=== PATIENT | female | born 1990 | race Caucasian/White ===

== ENCOUNTER 2024-09-13 14:15 | Emergency (ER) | payer SELFPAY ==
[2024-09-13 14:15] VITALS: BP 150/107; PULSE 86; RESP 20; TEMP 36.3; O2SAT 100
--- NOTE | 2024-09-13 14:19 | ED.GENADULT ---
HPI - General Adult General Chief complaint: Unspecified Stated complaint: AMBULANCE Time Seen by Provider: 09/13/24 14:19 History of Present Illness HPI narrative: save 34-year-old female brought in by EMS and is on the scene are assessed by a physician. She was driving from [place] and apparently her car broke down and was walking and has been cold and shivering. Otherwise after speaking to her as comfortable does not want to be seen by a physician. Patient denies any suicidal or homicidal thoughts and wants to warm up and be on her way. Discharge Plan Discharge Patient Language: Hong Konger Follow-up/Referrals: UNKNOWN,DOCTOR [Primary Care Provider] -
--- NOTE | 2024-09-13 15:30 | PC.NURSE ---
[facility] ([phone]) called with pt name and address found in vehicle that [address] photo on id matched pt. pt remains in lobby, dry clothes brought in by another employee of hospital for pt. pt changing in bathroom. pt declines to verify information provided per IS Cowen Pool.
--- NOTE | 2024-09-13 16:48 | PC.NURSE ---
spoke with pt father, yoly ruffin from [place] and mother also on the phone. will send aunt vini here to hot die picker pt. explained to father pt has been calm, pt clarified name, address, birthdate. has been provided with dry clothing, shoes, food. parents concerned for pt. explained need to follow up as needed per fmd or psychiatrist but at this time pt is not a danger to herself , had declined services and has been discharged but remains in the lobby
== END 2024-09-13 14:35 | disposition left against medical advice (07) ==
LOC: CHSED 14:20
PROVIDERS: Emergency Provider Emergency Medicine
DX: Z53.21 Procedure and treatment not carried out due to patient leaving prior to being seen by health care provider (principal)
CPT/HCPCS: 99199

== ENCOUNTER 2024-09-14 17:03 | Emergency (ER) | payer SELFPAY ==
--- OUTSIDE RECORDS SUMMARY | 2024-09-14 17:05 | XMS_ITS | Clinical Summary ---
Author Organization [facility] Address [address] [place] [address] Care Team Providers Care Big Machine Consultant Name Role Phone Darrell Diaz MD Primary Care Provider [phone] Source Comments [facility],non-owned Affiliates and Associated Physician Practices is amultiple site organization consisting of ambulatory clinics and hospital sitesin [place], [place], [place] and [place]. This disclosure is being madepursuant to the Care Everywhere program and may not contain all information available regarding this patient. Last updated 18.[facility] Allergies Active Allergy Reactions Criticality Noted Date Comments Advair Diskus Other Medium 11/23/2017 Weight gain Lang Itching 05/19/2017 Prednisone Psychiatric Medium 11/23/2017 Medications * Be aware that medications may not be up to date on this document. Alwaysverify current medications with the patient. Medication Sig Dispensed Refills Start Date End Date Status albuterol HFA (PROAIR HFA) 108 (90 BASE) MCG/ACT inhalerIndications: Asthma Inhale 2 puffs by mouth every 6 hours as needed for Shortness of Breath or Wheezing Reasons: Asthma 3 Inhaler 3 11/23/2017 Active sertraline (Zoloft) 50 MG tabletIndications:G eneralized Anxiety Disorder,Major Depressive Disorder Take 1 (one) tablet by mouth once daily Reasons: Generalized Anxiety Disorder, Major Depressive Disorder 30 tablet 08/24/2022 Active Active Problems Problem Noted Date Diagnosed Date Encounter for general adult medical examination with abnormal findings 11/23/2017 Moderate episode of recurrent major depressive d isorder 11/23/2017 Mild intermittent asthma without complication Chronic allergic rhinitis 11/23/2017 Overview (01/01/2018): Continue to take Singulair which controls her symptoms of allergic rhinitis as well. Continue to take [id number] Claritin which also helps control her allergy symptoms. Overweight 11/23/2017 Resolved Problems Problem Noted Date Diagnosed Date Resolved Date Smoking 11/23/2017 01/01/2018 Immunizations Name Administration Dates Next Due PNEUMOCOCCAL PPSV23 11/23/2017 Family History Medical History Relation Name Comments Asthma Father Hypertension Father Asthma Mother DVT - Deep Vein Thrombosis Mother Relation Name Status Comments Father Alive Mother Alive Social History Tobacco Use Types Packs/Day Years Used Date Smoking Tobacco: Some Days Cigarettes Smokeless Tobacco: Never Tobacco Cessation:Ready to Q uit: Not Asked; Counseling Given: Not Answered Comments:hookah Alcohol Use Standard Drinks/Week Comments Yes 2 (1 standard drink = 0.6 oz pur e alcohol) occasionally AUDIT-C Answer Date Recorded Q1: How often do you have a drink containing alc ohol? Monthly or less 08/24/2022 Q2: How many drinks containi ng alcohol do you have on a typical day when you are drinking? 1 or 2 08/24/2022 Q3: How often do you have si x or more drinks on one occasion? Never 08/24/2022 Sex and Gender Information Value Date Recorded Sex Assigned at Not on file Gender Identity Not on file Sexual Orientation Not on file Last Filed Vital Signs Vital Sign Reading Time Taken Comments Blood Pressure 131/79 08/24/2022 5:26 PM ACTING PROFESSOR Pulse 74 08/24/2022 5:26 PM ACTING PROFESSOR Temperature 37 ??C (98.6 ??F) 08/24/2022 5:26 PM ACTING PROFESSOR Respiratory Rate 16 08/24/2022 5:26 PM ACTING PROFESSOR Oxygen Saturation 100% 05/20/2022 3:37 PM CDT Inhaled Oxygen Concentration - - Weight 70.3 kg (155 lb) 08/24/2022 5:26 PM ACTING PROFESSOR Height 154.9 cm (5' 1 ) 08/24/2022 5:26 PM ACTING PROFESSOR Body Mass Index 29.29 08/24/2022 5:26 PM ACTING PROFESSOR Plan of Treatment Health Maintenance Due Date Last Done Comments PAP SMEAR 1989 HIV SCREENING 2004 HEPATITIS C SCREENING 07/11/2007 DTAP/TDAP/TD VACCINES (1 - Tdap) 2008 HEPATITIS B VACCINE (1 of 3 - 19+ 3-dose series) 2008 PNEUMOCOCCAL VACCINE (2 of 2 - PCV) 11/23/2018 11/23/2017 COVID-19 VACCINE (1 - 2023-2 5 season) 2024 INFLUENZA VACCINE (#1) 2024 DEPRESSION SCREENING 08/15/2024 ZOSTER VACCINE (1 of 2) 2039 HIB VACCINE Aged Out No longer eligi ble based on patient's age to complete this topic HPV VACCINE Aged Out No longer eligi ble based on patient's age to complete this topic MENINGOCOCCAL (Group B) VACCINE Aged Out No longer eligible based on patient's age to complete this topic MENINGOCOCCAL VACCINE Aged Out No kj ann marie eligible based on patient's age to complete this topic Care Teams Big Machine Consultant Relationship Specialty Start Date End Date Darrell Diaz MD PCP - General Internal Medicine 11/23/17
--- OUTSIDE RECORDS SUMMARY | 2024-09-14 17:05 | XMS_ITS | Patient Health Summary ---
Author Organization [facility] Address [address] [place] [address] Care Team Providers Care Criminal Justice Social Worker Name Role Phone Darrell Diaz MD Primary Care Provider [phone] Note from [facility],non-owned Affiliates and Associated Physician Practices is amultiple site organization consisting of ambulatory clinics and hospital sitesin [place], [place], [place] and [place]. This disclosure is being madepursuant to the Care Everywhere program and may not contain all information available regarding this patient. Last updated 18.[facility] Allergies * Advair Diskus(Other) -Medium Criticality * Lang(Itching) * Prednisone(Psychiatric) -Medium Criticality Medications * Be aware that medications may not be up to date on this document. Alwaysverify current medications with the patient. * albuterol HFA (PROAIR HFA) 108 (90 BASE) MCG/ACT inhaler(Started 11/23/2017) Inhale 2 puffs by mouth every 6 hours as needed for Shortness of Breath or Wheezing Reasons: Asthma 3 refills remaining * sertraline (Zoloft) 50 MG tablet(Started 08/24/2022) Take 1 (one) tablet by mouth once daily Reasons: Generalized Anxiety Disorder, Major Depressive Disorder Active Problems Problem Noted Date Diagnosed Date Encounter for general adult medical examination with abnormal findings 11/23/2017 Moderate episode of recurrent major depressive d isorder 11/23/2017 Mild intermittent asthma without complication Chronic allergic rhinitis 11/23/2017 Overweight 11/23/2017 Resolved Problems Problem Noted Date Diagnosed Date Resolved Date Smoking 11/23/2017 01/01/2018 Immunizations * PNEUMOCOCCAL PPSV23(Given 11/23/2017) Social History Tobacco Use Types Packs/Day Years [...] Comments Blood Pressure 131/79 08/24/2022 5:26 PM EASEMENT WORKER Pulse 74 08/24/2022 5:26 PM EASEMENT WORKER Temperature 37 ??C (98.6 ??F) 08/24/2022 5:26 PM EASEMENT WORKER Respiratory Rate 16 08/24/2022 5:26 PM EASEMENT WORKER Oxygen Saturation 100% 05/20/2022 3:37 PM CDT Inhaled Oxygen Concentration - - Weight 70.3 kg (155 lb) 08/24/2022 5:26 PM EASEMENT WORKER Height 154.9 cm (5' 1 ) 08/24/2022 5:26 PM EASEMENT WORKER Body Mass Index 29.29 08/24/2022 5:26 PM EASEMENT WORKER Procedures * TSH+FREE T4 PANEL(Performed 11/23/2017) Performed for Moderate episode of recurrent major depressive disorder (HCC) * COMPREHENSIVE METABOLIC PANEL(Performed 11/23/2017) Performed for Medication monitoring encounter * CBC W AUTO DIFFERENTIAL(Performed 11/23/2017) Performed for Medication monitoring encounter * URINALYSIS REFLEX MICROSCOPIC REFLEX CULTURE(Performed 05/19/2017) * SALICYLATE LEVEL BLOOD(Performed 05/19/2017) * URINE DRUG SCREEN IMMUNOASSAY(Performed 05/19/2017) * COMPREHENSIVE METABOLIC PANEL(Performed 05/19/2017) * CBC W AUTO DIFFERENTIAL(Performed 05/19/2017) * ALCOHOL ETHYL BLOOD(Performed 05/19/2017) * ACETAMINOPHEN LEVEL(Performed 05/19/2017) Results * TSH+FREE T4 PANEL (11/23/2017 10:26 AM CDT) TSH 1.73 0.358 - 3.740 uIU/mL [facility] ACCOUNT BILL T4 Free 0.98 0.65 - 1.34 ng/dL [facility] ACCOUNT BILL Comment:FASTING Blood BLOOD SPECIMEN / Unknown 11/23/2017 10:26 AM CDT 11/23/2017 Narrative Resulting Agency Comment [facility] [address] [place] [address] ??[facility] [phone] Darrell Diaz MD LAB - CHEMISTRY ESPERANZA INMAN [facility] ACCOUNT BILL [address] [place] [address] * (ABNORMAL) CBC W AUTO DIFFERENTIAL (11/23/2017 10:26 AM CDT) Only the most recent of2 resultswithin the time period is included. WBC 8.8 4.4 - 10.7 x10E9/L [facility] ACCOUNT BILL RBC 4.80 3.80 - 5.20 x10E12/L [facility] ACCOUNT BILL Hemoglobin 14.1 12.0 - 15.6 gm/dL [facility] ACCOUNT BILL Hematocrit 43.5 35.9 - 45.5 % [facility] ACCOUNT BILL MCV 90.6 80.7 - 98.3 fl [facility] ACCOUNT BILL MCH 29.4 26.7 - 34.0 pg [facility] ACCOUNT BILL MCHC 32.4 30.8 - 35.9 gm/dL [facility] ACCOUNT BILL RDW 12.7 12.1 - 14.9 % [facility] ACCOUNT BILL Platelet Count 219 153 - 416 x10E9/L [facility] ACCOUNT BILL Comment:MPV FL BLOOD ([facility]) 11.4 fl 9.4-12.9 Granulocytes % 57.1 44.0 - 73.0 % [facility] ACCOUNT BILL Lymphocytes % 29.0 20.0 - 43.0 % [facility] ACCOUNT BILL Monocytes % 6.6 5.0 - 13.0 % [facility] ACCOUNT BILL Eosinophils % 5.5 0.0 - 6.0 % [facility] ACCOUNT BILL Basophils % 0.9 0.0 - 2.0 % [facility] ACCOUNT BILL Granulocytes Absolute 5.01 2.01 - 7.14 x10E9/L [facility] ACCOUNT BILL Lymphocytes Absolute 2.55 1.07 - 3.94 x10E9/L [facility] ACCOUNT BILL Monocytes Absolute 0.58 0.26 - 1.07 x10E9/L [facility] ACCOUNT BILL Eosinophils Absolute 0.48(H) 0 - 0.47 x10E9/L [facility] ACCOUNT BILL Basophils Absolute 0.08 0 - 0.08 x10E9/L [facility] ACCOUNT BILL Immature Granulocytes 0.9 0 - 1 % [facility] ACCOUNT BILL Immature Granulocytes Absolute 0.08(H) 0.00 - 0.06 x10E9/L [facility] ACCOUNT BILL nRBC 0 /100 WBC [facility] ACCOUNT BILL Comment:FASTING Blood BLOOD SPECIMEN / Unknown 11/23/2017 10:26 AM CDT 11/23/2017 Narrative Resulting Agency Comment [address] ??[facility] [phone] Darrell Diaz MD LAB - HEMATOLOGY ORD ERABLES [facility] ACCOUNT BILL [address] [place] [address] * COMPREHENSIVE METABOLIC PANEL (11/23/2017 10:26 AM CDT) Only the most recent of2 resultswithin the time period is included. Glucose 91 74 - 106 mg/dL [facility] ACCOUNT BILL BUN 12 7 - 21 mg/dL [facility] ACCOUNT BILL Creatinine 0.77 0.50 - 1.30 mg/dL [facility] ACCOUNT BILL eGFR by MDRD >60 >60 mL/min/1.7 3m2 [facility] ACCOUNT BILL eGFR by MDRD >60 >60 mL/min/1.7 3m2 [facility] ACCOUNT BILL Sodium 139 136 - 145 mmol/L [facility] ACCOUNT BILL Potassium 4.4 3.5 - 5.1 mmol/L [facility] ACCOUNT BILL Chloride 106 98 - 107 mmol/L [facility] ACCOUNT BILL CO2 26 22 - 31 mmol/L [facility] ACCOUNT BILL Calcium 9.2 8.5 - 10.1 mg/dL [facility] ACCOUNT BILL Protein Total 7.4 6.4 - 8.2 gm/dL [facility] ACCOUNT BILL Albumin 3.9 3.4 - 5.0 gm/dL [facility] ACCOUNT BILL Bilirubin Total 0.5 0.2 - 1.0 mg/dL [facility] ACCOUNT BILL Alkaline Phosphatase 77 38 - 126 U/L [facility] ACCOUNT BILL AST 14 5 - 40 U/L [facility] ACCOUNT BILL ALT 21 13 - 61 U/L [facility] ACCOUNT BILL Comment:FASTING Blood BLOOD SPECIMEN / Unknown 11/23/2017 10:26 AM CDT 11/23/2017 Narrative Resulting Agency Comment [facility] [address] [place] [address] ??[facility] [phone] Darrell Diaz MD LAB - CHEMISTRY ESPERANZA INMAN [facility] ACCOUNT BILL [address] [place] [address] * (ABNORMAL) URINALYSIS ROUTINE W/REFLEX TO CULTURE (05/19/2017 5:32 AM CDT) Color UA Yellow Straw, Yellow, Dark Yellow 05/19/2017 6:03 AM CDT [facility] Clarity UA Clear 05/19/2017 6:03 AM CDT [facility] Specific [place] UA 1.019 1.005 - 1.030 05/19/2017 6:03 AM CDT [facility] pH UA 5.0 5.0 - 8.0 pH 05/19/2017 6:03 AM CDT [facility] Protein UA Negative Negative 05/19/2017 6:03 AM CDT [facility] Blood UA 2+(A) Negative 05/19/2017 6:03 AM CDT [facility] Leukocyte UA Negative Negative 05/19/2017 6:03 AM CDT [facility] Nitrite UA Negative Negative 05/19/2017 6:03 AM CDT [facility] Glucose UA Negative Negative 05/19/2017 6:03 AM CDT [facility] Ketone UA Trace(A) Negative 05/19/2017 6:03 AM CDT [facility] Bilirubin UA Negative Negative 05/19/2017 6:03 AM CDT [facility] Urobilinogen UA 0.2 0.1 - 1.0 EU/dL 05/19/2017 6:03 AM CDT [facility] WBC UA Auto 2-5 0-2, 2-5 # /hpf 05/19/2017 6:03 AM T [facility] RBC UA Auto 10-20(A) 0-2, 2-5 # /hpf 05/19/2017 6:03 AM CDT [facility] Epithelial Cell UA Auto 2-5 0-2, 2-5 # /hpf 05/19/2017 6:03 AM T [facility] Hyaline Casts UA Auto 2-5(A) 0 - 2 #/lpf 05/19/2017 6:03 AM T [facility] Reflex Status Culture not indicated 05/19/2017 6:03 AM [facility] Urine URINE SPECIMEN OBTAINED BY CLEAN CATCH PROCEDURE / Unknown Collection / Unknown 05/19/2017 5:32 AM CDT 05/19/2017 5:48 AM CDT Zaid Mendez MD LAB - URINALYSIS OR DERABLES Performing Organization Address City/State/[facility] Co de Phone Number [facility] [address] [place] [address] * DRUG SCREEN TOX URINE PANEL (05/19/2017 5:32 AM CDT) [facility] Amphetamines Screen Urine Not Detected Not Detected 05/19/2017 6:00 AM [facility] Barbiturates Screen Urine Not Detected Not Detected 05/19/2017 6:00 AM [facility] Benzodiazepines Screen Urine Not Detected Not Detected 05/19/2017 6:00 AM [facility] Cannabinoids Screen Urine Not Detected Not Detected 05/19/2017 6:00 AM [facility] Cocaine Screen Urine Not Detected Not Detected 05/19/2017 6:00 AM [facility] Methadone Screen Urine Not Detected Not Detected 05/19/2017 6:00 AM [facility] Opiate Screen Urine Not Detected Not Detected 05/19/2017 6:00 AM [facility] Phencyclidine Screen Urine Not Detected Not Detected 05/19/2017 6:00 AM [facility] Urine URINE / Unknown Collection / Unknown 05/19/2017 5:32 AM CDT 05/19/2017 5:47 AM CDT Narrative [facility] - 05/19/2017 6:00 AM CDT This drug screen is designed for MEDICAL purposes only. It is not to be used for legal purposes, including but not limited to worker's comp, police investigations, occupational issues, child custody, etc. ??Any positive result is only presumptive and must be confirmed with a separate confirmatory test ordered by the physician. Drug Screening Test Cutoff Values: AMPHETAMINES ?1000 ng/mL BARBITURATES ? 200 ng/mL BENZODIAZEPINES ??200 ng/mL CANNABINOIDS(THC) 50 ng/mL COCAINE ?300 ng/mL METHADONE ?300 ng/mL OPIATES ?300 ng/mL PHENCYCLIDINE(PCP)25 ng/mL Zaid Mendez MD LAB - URINE METEOROLOGY PROFESSOR RY ORDERABLES Performing Organization Address [facility] de Phone Number [facility] [address] [place] [address] [phone] * ALCOHOL ETHYL BLOOD (05/19/2017 5:32 AM CDT) Ethanol <10 <10 mg/dL 05/19/2017 6:06 AM CDT [facility] Ethanol Calculated <0.010 <0.100 gm/dL 05/19/2017 6:06 AM CDT [facility] Blood BLOOD SPECIMEN / Unknown Venipuncture / Unknown 05/19/2017 5:32 AM CDT 05/19/2017 5:46 AM CDT Narrative [facility] - 05/19/2017 6:06 AM CDT Non Legal Serum Alcohol Zaid Mendez MD LAB - CHEMISTRY ORD ERABLES Performing Organization Address [facility] de Phone Number [facility] [address] [place], [place] [id number] * SALICYLATE LEVEL BLOOD (05/19/2017 5:32 AM CDT) Salicylate <1.7 <20.0 mg/dL 05/19/2017 6:00 AM CDT [facility] Blood BLOOD SPECIMEN / Unknown Venipuncture / Unknown 05/19/2017 5:32 AM CDT 05/19/2017 5:46 AM CDT Zaid Mendez MD LAB - CHEMISTRY ORD ERABLES Performing Organization Address [facility] Co de Phone Number [facility] [address] [place] [address] * (ABNORMAL) ACETAMINOPHEN LEVEL (05/19/2017 5:32 AM CDT) [facility] Acetaminophen <2.0(L) 10.0 - 30.0 ug/mL 05/19/2017 6:06 AM CDT [facility] Blood BLOOD SPECIMEN / Unknown Venipuncture / Unknown 05/19/2017 5:32 AM CDT 05/19/2017 5:46 AM CDT Narrative [facility] - 05/19/2017 6:06 AM CDT [facility] ACETAMINOPHEN COMMENT Critical values: 4 Hours Post Ingestion: Critical value ?? > 200 ??g/mL 12 Hours Post Ingestion: Critical value ??> ??50 ??g/mL For acute ingestion, please refer to Acetaminophen nomogram to determine the ??risk of toxicity ??based on time since ingestion and acetaminophen level (see link provided). Note the nomogram disclaimer. WARNING: Assessing the potential toxicity of an acetaminophen level on a standard risk nomogram must take into consideration many factors including any uncertainty of the time since ingestion or the possibility of other medications that may alter the peak level. Contact the [place] [facility] at or reserved for healthcare professionals to assist you in evaluating potentially toxic acetaminophen levels. Zaid Mendez MD LAB - CHEMISTRY ORD NASIMABLES Performing Organization Address City/[facility]/ZIP Co de Phone Number [facility] [address] [place] [address] Care Teams Criminal Justice Social Worker Relationship Specialty Start Date End Date Darrell Diaz MD PCP - General Internal Medicine 11/23/17
--- OUTSIDE RECORDS SUMMARY | 2024-09-14 17:05 | XMS_ITS | Referral Summary ---
Author Organization [facility] Address [address] [place] [address] Care Team Providers Care Ceramic Tiler Name Role Phone Darrell Diaz MD Primary Care Provider [phone] Source Comments [facility],non-owned Affiliates and Associated Physician Practices is amultiple site organization consisting of ambulatory clinics and hospital sitesin [place], [place], [place] and [place]. This disclosure is being madepursuant to the Care Everywhere program and may not contain all information available regarding this patient. Last updated 18.[facility] Allergies Active Allergy Reactions Criticality Noted Date [...] allergic rhinitis as well. Continue to take [id number] Claritin which also helps control her allergy symptoms. Overweight 11/23/2017 Resolved Problems Problem Noted Date Diagnosed Date Resolved Date Smoking 11/23/2017 01/01/2018 Immunizations Name Administration Dates Next Due PNEUMOCOCCAL PPSV23 11/23/2017 Social History Tobacco Use Types Packs/Day Years [...] Comments Blood Pressure 131/79 08/24/2022 5:26 PM CENTER RECEPTIONIST Pulse 74 08/24/2022 5:26 PM CENTER RECEPTIONIST Temperature 37 ??C (98.6 ??F) 08/24/2022 5:26 PM CENTER RECEPTIONIST Respiratory Rate 16 08/24/2022 5:26 PM CENTER RECEPTIONIST Oxygen Saturation 100% 05/20/2022 3:37 PM CDT Inhaled Oxygen Concentration - - Weight 70.3 kg (155 lb) 08/24/2022 5:26 PM CENTER RECEPTIONIST Height 154.9 cm (5' 1 ) 08/24/2022 5:26 PM CENTER RECEPTIONIST Body Mass Index 29.29 08/24/2022 5:26 PM CENTER RECEPTIONIST Plan of Treatment Not on file Care Teams Ceramic Tiler Relationship Specialty Start Date End Date Darrell Diaz MD PCP - General Internal Medicine 11/23/17
[2024-09-14 17:09] VITALS: BP 162/00; PULSE 97; RESP 18; TEMP 37.3; O2SAT 95
--- NOTE | 2024-09-14 17:17 | ECG_ITS ---
Test Date: 2024-09-14 17:24:52 Measurements Intervals [place] Rate: 93 P: -82 DE: 90 QRS: 71 QRSD: 78 T: 71 QT: 367 QTc: 458 Interpretive Statements SINUS RHYTHM CHANGES TO ECTOPIC ATRIAL RHYTHM ABNORMAL ECG No previous ECG available for comparison Electronically Signed On 09-15-2024 10:46:12 HOTEL HOUSEKEEPER by Navneet Gooden D.O.
--- NOTE | 2024-09-14 17:18 | ED.PSYCH ---
HPI - Psych General Chief Complaint: Psychiatric Symptoms Stated Complaint: psych eval Source: patient, family, EMS, old records reviewed, police and other ( [address]) Mode of arrival: ambulatory Limitations: no limitations History of Present Illness HPI Narrative: patient is a 34-year-old female with the past few days of psychosis according to the psychiatric counselors and police department and her father. Patient was brought to the ED for further evaluation after [place] was found on the highway walking. She is known for acting normal at times and further having psychosis at other times over the past few days. She has been on Zoloft but she is not using regularly. She lives in [place] and drove all the way to the [facility] on her own. She has an apartment in [place]. No suicide or homicide ideation. Patient presents calm. All of the history and psychosis information is given by others of authority and they have made her involuntary. history shows that she has bipolar disease. MD complaint: altered mental status and other ( manic and psychosis according to records and history) Onset (ago): week(s) (1) Duration: intermittent History of same: Yes Relieving factors: none Exacerbating factors: none Context: recent drug abuse ( THC) and not taking psychiatric medications Associated psychiatric symptoms: auditory hallucinations, visual hallucinations and delusions Associated symptoms: denies other symptoms Treatments prior to arrival: placed on mental health hold Related Data Home Medications ?Medication ?Instructions ?Recorded ?Confirmed ?Last Taken ?Type albuterol sulfate 90 mcg/actuation 2 puff inhalation PRN bronchospasm 09/14/24 Unknown History aerosol inhaler Allergies Allergy/AdvReac Type Severity Reaction Status Date / Time No Known Allergies Allergy Verified 09/14/24 18:13 Review of Systems Review of Systems: All systems reviewed & are unremarkable except as noted in HPI and below Constitutional: Constitutional: Reports no additional constitutional complaints Eyes: Eyes: Reports no additional eye complaints ENT: Reports system reviewed and no additional complaints, except as documented Cardiovascular: Cardiovascular: Reports no additional cardiovascular complaints Respiratory: Respiratory: Reports no additional respiratory complaints Gastrointestinal: Gastrointestinal: Reports no additional gastrointestinal complaints Genitourinary: Genitourinary: Reports no additional female genitourinary complaints Musculoskeletal: Musculoskeletal: Reports no additional musculoskeletal complaints Integumentary/Breasts: Skin/Breast: Reports system reviewed and no additional complaints, except as docu Neurologic: Reports system reviewed and no additional complaints, except as documented Psychiatric: Psychiatric: Reports no additional psychiatric complaints Endocrine: Endocrine: Reports no additional endocrine complaints Hematologic/Lymphatic: Hematologic/Lymphatic: Reports no additional hematologic/lymphatic complaints Allergic/Immunologic: Allergic/Immunologic: Reports no additional allergic/immunologic complaints Exam Const: General: healthy appearing Nutritional Appearance: well nourished Orientation/consciousness: patient oriented x3 Limitations: behavioral limitations Other: patient acting normal on entry to the ER and during her stay but psychiatric counselors know that she is putting on a show at this time and she typically can convert to liz or psychosis easily; psychiatric counselors and father feel that this patient is a harm to themselves if left in the community HENMT: Head: normal to inspection Ears: external ears normal Face/Nose/Sinus: Normal external nose present Eyes: Conjunctivae: conjunctivae normal Pupils: Equal, round and reactive pupils present EOM: EOMs intact bilaterally Neck: Neck: normal visual inspection Chest: Chest palpation & inspection: normal inspection of the chest Resp: Effort & Inspection: normal respiratory effort and not labored Auscultation: clear to auscultation bilaterally and no crackles Cardio: Rate: regular rate Rhythm: regular rhythm Heart sounds: no murmurs GI: Inspection: non-distended GI Palp: Yes Soft to palpation and No Tenderness to palpation present (GI) Auscultation: normal bowel sounds : General: Yes bladder normal to palpation Back/Spine/Pelvis: Back: no CVA tenderness Skin: General skin exam: normal color Rashes: no rashes Wounds: no wounds Neuro: General: patient oriented x3, moves all extremities, no meningeal signs, no focal motor deficits and CN's II-XI intact bilaterally Cranial nerves: Yes Nystagmus not present Speech: normal speech Gait exam (Neuro): Normal gait present Extrem: General: normal to inspection, no clubbing, cyanosis or edema and no pedal edema Psych: Mental Status: mental status grossly normal Affect: normal affect Attitude: cooperative Other: no suicide or homicide ideation Course Vital Signs Vital signs: Vital Signs Temperature 37.3 C 09/14/24 17:09 Pulse Rate 97 09/14/24 17:09 Respiratory Rate 18 09/14/24 17:09 Blood Pressure 162/00 H 09/14/24 17:09 Pulse Oximetry 95 09/14/24 17:09 Oxygen Delivery Room Air 09/14/24 17:09 Temperature 36.6 C 09/15/24 00:21 Pulse Rate 76 09/15/24 00:21 Respiratory Rate 18 09/15/24 00:21 Blood Pressure 112/62 09/15/24 00:21 Pulse Oximetry 97 09/15/24 00:21 Oxygen Delivery Room Air 09/15/24 00:21 MDM - Psych MDM Narrative Medical decision making narrative: patient is a 34-year-old female with psychosis and liz over the past few days. Police and psychiatric counselors have a well documented these changes. They have seen her during these events. They have placed her on involuntary hold. We will proceed with continuing involuntary and get her to the psychiatric care that she needs at this time. Patient is medically clear for psychiatric evaluation. She has a UTI that requires antibiotics. She had hypokalemia replaced by oral potassium. Lab Data Attestation: I reviewed the patient's lab results. 09/14/24 17:30 09/14/24 17:30 Labs: Lab Results 09/14/24 09/14/24 09/14/24 Range/Units 17:30 23:54 23:55 WBC 11.0 H (4.8-10.8) K/mm3 RBC 4.51 (4.20-5.40) M/mm3 Hgb 13.5 (12.0-15.0) g/dL Hct 39.9 (35.0-49.0) % MCV 88.5 (78.0-102.0) fL MCH 29.9 (27.0-31.0) pg MCHC 33.8 (32-36) g/dL RDW 12.5 (11.6-14.4) % Plt Count 227 (150-420) K/mm3 MPV 10.9 (9.2-11.8) fl Immature Gran % (Auto) 0.9 H (0.0-0.0) % Neut % (Auto) 69.0 (50.0-70.0) % Lymph % (Auto) 20.5 (18.0-42.0) % [place] % (Auto) 8.6 (2.0-11.0) % Eos % (Auto) 0.6 L (1.0-6.0) % Baso % (Auto) 0.4 (0.0-1.0) % Lymph # (Auto) 2.26 (1.10-4.50) K/mm3 [place] # (Auto) 0.95 H (0.10-0.90) K/mm3 Eos # (Auto) 0.07 (0.02-0.50) K/mm3 Baso # (Auto) 0.04 (0.00-0.10) K/mm3 Abs Immat Gran (auto) 0.10 H (0.00-0.00) K/mm3 Absolute Neuts (auto) 7.61 H (1.70-7.20) K/mm3 Absolute Nucleated RBC 0.00 (0.00-0.00) K/mm3 Nucleated RBC % 0.0 (0-0.0) % Sodium 139 (136-145) mmol/L Potassium 2.7 L (3.5-5.1) mmol/L Chloride 103 (98-108) mmol/L Carbon Dioxide 27 (21-32) mmol/L Anion Gap 9 (4-12) mmol/L BUN 7 (7-18) mg/dL Creatinine 0.82 (0.55-1.02) mg/dL Estim Creat Clear Calc 63 ml/min Estimated GFR > 60 (59 - ) Glucose 100 H (70-99) mg/dL Calculated Osmolality 286 (285-295) mOsm/kg Calcium 8.8 (8.5-10.1) mg/dL Total Bilirubin 0.6 (0.00-1.00) mg/dL AST 20 (15-37) U/L ALT 20 (14-59) U/L Alkaline Phosphatase 50 (46-116) U/L Total Protein 6.7 (6.4-8.2) g/dL Albumin 3.9 (3.4-5.0) g/dL TSH 1.03 (0.36-3.74) uIU/mL Urine Color [place] A (Yellow) Urine Appearance Cloudy A (Clear) Urine pH 5.5 (5.0-8.0) Ur Specific [place] >= 1.030 H (1.010-1.020) Urine Protein 1+ H (Negative) Urine Glucose (UA) Negative (Negative) Urine Ketones 2+ H (Negative) Ur Blood (Man) 1+ H (Negative) Urine Nitrate Positive H (Negative) Urine Bilirubin 3+ H (Negative) Urine Urobilinogen >=8.0 (0.2-1.0) mg/dL Leukocyte Esterase Rfl Trace H (Negative) BERE/UL Urine RBC 6-10 H (0-2) /hpf Urine WBC 16-20 H (0-3) /hpf Ur Squamous Epith Cells Moderate H (Few) /hpf Urine Bacteria 3+ H (None) /hpf Urine Mucus Moderate H /lpf Urine Test Negative Salicylates 0.7 L (2.8-20.0) mg/dL Urine Opiates Screen Negative (Negative) Urine Methadone Screen Negative (Negative) Acetaminophen < 2 L (10-30) ug/mL Ur Barbiturates Screen Negative (Negative) Ur Phencyclidine Scrn Negative (Negative) Ur Amphetamine Screen Negative (Negative) U Benzodiazepines Scrn Negative (Negative) Urine Cocaine Screen Negative (Negative) U Cannabinoids Screen Positive A (Negative) Ethyl Alcohol < 3 (0-6) mg/dL Influenza A (RT-PCR) Negative (Negative) Influenza B (RT-PCR) Negative (Negative) RSV (RT-PCR) Negative (Negative) SARS-CoV-2 RNA (RT-PCR) Negative (Negative) ECG Data EKG #1: Attestation: I personally reviewed and interpreted this ECG as follows: ECG completion date: 09/15/24 ECG completion time: 00:22 EKG Interpretation: normal rate, sinus rhythm, junctional, no ectopy, non-specific ST changes, normal QRS, normal QT and NL axis Discharge Plan Discharge Clinical Impression: Psychosis, Liz, UTI (urinary tract infection) Patient Disposition: Acute Care Hospital Condition: Stable Patient Language: Burkinan Prescriptions: New cephalexin 500 mg capsule 500 mg PO BID 7 Days Qty: 14 0RF No Action albuterol sulfate 90 mcg/actuation HFA aerosol inhaler 2 puff INHALATION PRN (Reason: bronchospasm) Follow-up/Referrals: UNKNOWN,DOCTOR [Primary Care Provider] - Time of Disposition: 00:24
--- OUTSIDE RECORDS SUMMARY | 2024-09-14 17:29 | XMS_ITS | Clinical Summary ---
Author Organization [facility] [employer] Address [address] [place] [address] Care Team Providers Care Remedial Project Manager Name Role Phone Darrell Diaz MD Primary Care Provider [phone] Source Comments [facility],non-owned Affiliates and Associated Physician Practices is amultiple site organization consisting of ambulatory clinics and hospital sitesin [place], [place], [place] and [place]. This disclosure is being madepursuant to the Care Everywhere program and may not contain all information available regarding this patient. Last updated 18.[facility] [employer] Allergies Active Allergy Reactions Criticality Noted Date [...] allergic rhinitis as well. Continue to take [id number] Claritin which also helps control her allergy [...] Comments Blood Pressure 131/79 08/24/2022 5:26 PM TAILERCPA Pulse 74 08/24/2022 5:26 PM TAILERCPA Temperature 37 ??C (98.6 ??F) 08/24/2022 5:26 PM TAILERCPA Respiratory Rate 16 08/24/2022 5:26 PM TAILERCPA Oxygen Saturation 100% 05/20/2022 3:37 PM CDT Inhaled Oxygen Concentration - - Weight 70.3 kg (155 lb) 08/24/2022 5:26 PM TAILERCPA Height 154.9 cm (5' 1 ) 08/24/2022 5:26 PM TAILERCPA Body Mass Index 29.29 08/24/2022 5:26 PM TAILERCPA Plan of Treatment Health Maintenance Due Date [...] age to complete this topic Care Teams Remedial Project Manager Relationship Specialty Start Date End Date Darrell Diaz MD PCP - General Internal Medicine 11/23/17
--- OUTSIDE RECORDS SUMMARY | 2024-09-14 17:29 | XMS_ITS | Referral Summary ---
Author Organization [facility] [employer] Address [address] [place] [address] Care Team Providers Care Prompt Care Rn Name Role Phone Darrell Diaz MD Primary Care Provider [phone] Source Comments [facility],non-owned Affiliates and Associated Physician Practices is amultiple site organization consisting of ambulatory clinics and hospital sitesin [place], [place], [place] and [place]. This disclosure is being madepursuant to the Care Everywhere program and may not contain all information available regarding this patient. Last updated 18.[facility] [employer] Allergies Active Allergy Reactions Criticality Noted Date [...] allergic rhinitis as well. Continue to take [id number] Claritin which also helps control her allergy [...] Comments Blood Pressure 131/79 08/24/2022 5:26 PM MOTOR REBUILDER Pulse 74 08/24/2022 5:26 PM MOTOR REBUILDER Temperature 37 ??C (98.6 ??F) 08/24/2022 5:26 PM MOTOR REBUILDER Respiratory Rate 16 08/24/2022 5:26 PM MOTOR REBUILDER Oxygen Saturation 100% 05/20/2022 3:37 PM CDT Inhaled Oxygen Concentration - - Weight 70.3 kg (155 lb) 08/24/2022 5:26 PM MOTOR REBUILDER Height 154.9 cm (5' 1 ) 08/24/2022 5:26 PM MOTOR REBUILDER Body Mass Index 29.29 08/24/2022 5:26 PM MOTOR REBUILDER Plan of Treatment Not on file Care Teams Prompt Care Rn Relationship Specialty Start Date End Date Darrell Diaz MD PCP - General Internal Medicine 11/23/17
--- OUTSIDE RECORDS SUMMARY | 2024-09-14 17:29 | XMS_ITS | Patient Health Summary ---
Author Organization [facility] Address [address] [place] [address] Care Team Providers Care Manager Motor Name Role Phone Darrell Diaz MD Primary Care Provider [phone] Note from [facility],non-owned Affiliates and Associated Physician Practices is amultiple site organization consisting of ambulatory clinics and hospital sitesin [place], [place] and [place]. This disclosure is being madepursuant to the Care Everywhere program and may not contain all information available regarding this patient. Last updated 18.[facility] [employer] Allergies * Advair Diskus(Other) -Medium Criticality * [...] Comments Blood Pressure 131/79 08/24/2022 5:26 PM PROSTHETIC MAKEUP DESIGNER Pulse 74 08/24/2022 5:26 PM PROSTHETIC MAKEUP DESIGNER Temperature 37 ??C (98.6 ??F) 08/24/2022 5:26 PM PROSTHETIC MAKEUP DESIGNER Respiratory Rate 16 08/24/2022 5:26 PM PROSTHETIC MAKEUP DESIGNER Oxygen Saturation 100% 05/20/2022 3:37 PM CDT Inhaled Oxygen Concentration - - Weight 70.3 kg (155 lb) 08/24/2022 5:26 PM PROSTHETIC MAKEUP DESIGNER Height 154.9 cm (5' 1 ) 08/24/2022 5:26 PM PROSTHETIC MAKEUP DESIGNER Body Mass Index 29.29 08/24/2022 5:26 PM PROSTHETIC MAKEUP DESIGNER Procedures * TSH+FREE T4 PANEL(Performed 11/23/2017) Performed [...] AM CDT 11/23/2017 Narrative Resulting Agency Comment [facility] [address] [place] [address] ??[facility] [phone] Darrell Diaz MD LAB - CHEMISTRY ESPERANZA INMAN [facility] ACCOUNT BILL [address] [place] [address] * (ABNORMAL) CBC W AUTO DIFFERENTIAL (11/23/2017 [...] x10E9/L [facility] ACCOUNT BILL Comment:MPV FL BLOOD ([facility]) 11.4 fl 9.4-12.9 Granulocytes % 57.1 44.0 [...] AM CDT 11/23/2017 Narrative Resulting Agency Comment [address] ??[facility] [phone] Darrell Diaz MD LAB - HEMATOLOGY ORD ERABLES [facility] ACCOUNT BILL [address] [place] [address] * COMPREHENSIVE METABOLIC PANEL (11/23/2017 10:26 AM [...] AM CDT 11/23/2017 Narrative Resulting Agency Comment [facility] [address] [place] [address] ??[facility] [phone] Darrell Diaz MD LAB - CHEMISTRY ESPERANZA INMAN [facility] ACCOUNT BILL [address] [place] [address] * (ABNORMAL) URINALYSIS ROUTINE W/REFLEX TO CULTURE (05/19/2017 5:32 AM CDT) Color UA Yellow Straw, Yellow, Dark Yellow 05/19/2017 6:03 AM CDT [facility] Clarity UA Clear 05/19/2017 6:03 AM CDT [facility] Specific [place] UA 1.019 1.005 - 1.030 05/19/2017 6:03 AM CDT [facility] pH UA 5.0 5.0 - 8.0 pH 05/19/2017 6:03 AM CDT [facility] Protein UA Negative Negative 05/19/2017 6:03 AM CDT [facility] Blood UA 2+(A) Negative 05/19/2017 6:03 AM CDT [facility] Leukocyte UA Negative Negative 05/19/2017 6:03 AM CDT [facility] Nitrite UA Negative Negative 05/19/2017 6:03 AM CDT [facility] Glucose UA Negative Negative 05/19/2017 6:03 AM CDT [facility] Ketone UA Trace(A) Negative 05/19/2017 6:03 AM CDT [facility] Bilirubin UA Negative Negative 05/19/2017 6:03 AM CDT [facility] Urobilinogen UA 0.2 0.1 - 1.0 EU/dL 05/19/2017 6:03 AM CDT [facility] WBC UA Auto 2-5 0-2, 2-5 # /hpf 05/19/2017 6:03 AM T [facility] RBC UA Auto 10-20(A) 0-2, 2-5 # /hpf 05/19/2017 6:03 AM CDT [facility] Epithelial Cell UA Auto 2-5 0-2, 2-5 # /hpf 05/19/2017 6:03 AM T [facility] Hyaline Casts UA Auto 2-5(A) 0 - 2 #/lpf 05/19/2017 6:03 AM T [facility] Reflex Status Culture not indicated 05/19/2017 6:03 AM [facility] Urine URINE SPECIMEN OBTAINED BY CLEAN CATCH PROCEDURE / Unknown Collection / Unknown 05/19/2017 5:32 AM CDT 05/19/2017 5:48 AM CDT Zaid Mendez MD LAB - URINALYSIS OR DERABLES Performing Organization Address City/State/[facility] Co de Phone Number [facility] [address] [place] [address] * DRUG SCREEN TOX URINE PANEL (05/19/2017 5:32 AM CDT) [facility] Amphetamines Screen Urine Not Detected Not Detected 05/19/2017 6:00 AM [facility] Barbiturates Screen Urine Not Detected Not Detected 05/19/2017 6:00 AM [facility] Benzodiazepines Screen Urine Not Detected Not Detected 05/19/2017 6:00 AM [facility] Cannabinoids Screen Urine Not Detected Not Detected 05/19/2017 6:00 AM [facility] Cocaine Screen Urine Not Detected Not Detected 05/19/2017 6:00 AM [facility] Methadone Screen Urine Not Detected Not Detected 05/19/2017 6:00 AM [facility] Opiate Screen Urine Not Detected Not Detected 05/19/2017 6:00 AM [facility] Phencyclidine Screen Urine Not Detected Not Detected 05/19/2017 6:00 AM [facility] Urine URINE / Unknown Collection / Unknown 05/19/2017 5:32 AM CDT 05/19/2017 5:47 AM CDT Narrative [facility] - 05/19/2017 6:00 AM CDT This [...] ng/mL Zaid Mendez MD LAB - URINE COMMERCIAL REAL ESTATE AGENT RY ORDERABLES Performing Organization Address [facility] de Phone Number [facility] [address] [place] [address] [phone] * ALCOHOL ETHYL BLOOD (05/19/2017 5:32 AM CDT) Ethanol <10 <10 mg/dL 05/19/2017 6:06 AM CDT [facility] Ethanol Calculated <0.010 <0.100 gm/dL 05/19/2017 6:06 AM CDT [facility] Blood BLOOD SPECIMEN / Unknown Venipuncture / Unknown 05/19/2017 5:32 AM CDT 05/19/2017 5:46 AM CDT Narrative [facility] - 05/19/2017 6:06 AM CDT Non Legal Serum Alcohol Zaid Mendez MD LAB - CHEMISTRY ORD ERABLES Performing Organization Address [facility] de Phone Number [facility] [address] [place], [place] [id number] * SALICYLATE LEVEL BLOOD (05/19/2017 5:32 AM CDT) Salicylate <1.7 <20.0 mg/dL 05/19/2017 6:00 AM CDT [facility] Blood BLOOD SPECIMEN / Unknown Venipuncture / Unknown 05/19/2017 5:32 AM CDT 05/19/2017 5:46 AM CDT Zaid Mendez MD LAB - CHEMISTRY ORD ERABLES Performing Organization Address [facility] Co de Phone Number [facility] [address] [place] [address] * (ABNORMAL) ACETAMINOPHEN LEVEL (05/19/2017 5:32 AM CDT) [facility] Acetaminophen <2.0(L) 10.0 - 30.0 ug/mL 05/19/2017 6:06 AM CDT [facility] Blood BLOOD SPECIMEN / Unknown Venipuncture / Unknown 05/19/2017 5:32 AM CDT 05/19/2017 5:46 AM CDT Narrative [facility] - 05/19/2017 6:06 AM CDT [facility] [...] may alter the peak level. Contact the [place] [facility] at or reserved for healthcare professionals to assist you in evaluating potentially toxic acetaminophen levels. Zaid Mendez MD LAB - CHEMISTRY ORD NASIMABLES Performing Organization Address City/[facility]/ZIP Co de Phone Number [facility] [address] [place] [address] Care Teams Manager Motor Relationship Specialty Start Date End Date Darrell Diaz MD PCP - General Internal Medicine 11/23/17
[2024-09-14 17:36] LABS: Basophils Absolute Auto 0.04 K/mm3 (0.00-0.10); Basophils Percent Auto 0.4 % (0.0-1.0); Eosinophils Absolute Auto 0.07 K/mm3 (0.02-0.50); Eosinophils Percent Auto 0.6 % (1.0-6.0); Hematocrit 39.9 % (35.0-49.0); Hemoglobin 13.5 g/dL (12.0-15.0); Immature Granulocyte Percent A 0.9 % (0.0-0.0); Lymphocytes Absolute Auto 2.26 K/mm3 (1.10-4.50); Lymphocytes Percent Auto 20.5 % (18.0-42.0); Mean Corpuscular HGB Conc 33.8 g/dL (32-36); Mean Corpuscular Hemoglobin 29.9 pg (27.0-31.0); Mean Corpuscular Volume 88.5 fL (78.0-102.0); Mean Platelet Volume 10.9 fl (9.2-11.8); Monocytes Absolute Auto 0.95 K/mm3 (0.10-0.90); Monocytes Percent Auto 8.6 % (2.0-11.0); Neutrophils Absolute Auto 7.61 K/mm3 (1.70-7.20); Platelet Count Result 227 K/mm3 (150-420); Red Blood Count 4.51 M/mm3 (4.20-5.40); Red Cell Distribution Width 12.5 % (11.6-14.4)
[2024-09-14 18:02] LABS: Acetaminophen < 2 ug/mL (10-30); Alanine Aminotransferase 20 U/L (14-59); Albumin Level 3.9 g/dL (3.4-5.0); Alkaline Phosphatase 50 U/L (46-116); Anion Gap 9 mmol/L (4-12); Aspartate Amino Transferase 20 U/L (15-37); Bilirubin,Total 0.6 mg/dL (0.00-1.00); Blood Urea Nitrogen 7 mg/dL (7-18); Calcium 8.8 mg/dL (8.5-10.1); Carbon Dioxide 27 mmol/L (21-32); Chloride 103 mmol/L (98-108); Estimated CRCL calculation 63 ml/min; Estimated Glomerular Filt Rate > 60; Glucose 100 mg/dL (70-99); Osmolality Calculated 286 mOsm/kg (285-295); Potassium 2.7 mmol/L (3.5-5.1); Salicylate 0.7 mg/dL (2.8-20.0); Sodium 139 mmol/L (136-145); Thyroid Stimulating Hormone 1.03 uIU/mL (0.36-3.74); Total Protein 6.7 g/dL (6.4-8.2)
[2024-09-14 18:03] LABS: Ethanol < 3 mg/dL (0-6)
[2024-09-14 18:13] LABS: SARS-CoV-2 RNA PCR Negative (Negative)
[2024-09-14 18:17] LABS: Influenza A QL RT-PCR Negative (Negative); Influenza B QL RT-PCR Negative (Negative); RSV RNA, RT-PCR Negative (Negative)
--- NOTE | 2024-09-14 19:16 | PC.NURSE ---
report to emily cooper
[2024-09-14 19:20] VITALS: BP 128/62; PULSE 69; RESP 18; TEMP 36.9; O2SAT 96
--- NOTE | 2024-09-14 19:28 | PC.NURSE ---
Patient currently lucid upon assessment. Patient is A/O x 4 at this time, calm and cooperative. Patient was asked if she wanted family to know any information at this time. Patient declined to anyone, including father to know any information about her, other than she is safe and ok at this time. Patient stated that she will call her family, when she feels like it.
--- NOTE | 2024-09-14 19:59 | PC.NURSE ---
pt ambulated to bathroom for urine specimen
--- NOTE | 2024-09-14 22:17 | PC.NURSE ---
patient resting comfortably, chest rise and fall as appropriate, no distress noted at this time. Patient not displaying any unsafe or bizarre behaviors at this time.
--- NOTE | 2024-09-14 23:19 | PC.NURSE ---
patient resting comfortably, chest rise and fall as appropriate, no distress noted at this time. Patient not displaying any unsafe or bizarre behaviors at this time.
[2024-09-14] MEDS: POTASSIUM CHLORIDE 20 MEQ ER TABLET 40 MEQ PO (23:52)
[2024-09-14 23:59] LABS: Appearance Urine Cloudy (Clear); Bilirubin Urine 3+ (Negative); Blood Urine 1+ (Negative); Glucose Urine UA Negative (Negative); Ketones Urine 2+ (Negative); Leukocyte Esterase Ur Trace LEU/UL (Negative); Nitrate Urine Positive (Negative); Protein Urine 1+ (Negative); Specific Grav Ur >= 1.030 (1.010-1.020); Urobilinogen Urine >=8.0 mg/dL (0.2-1.0); pH Urine 5.5 (5.0-8.0)
[2024-09-15 00:06] LABS: Amphetamine Screen Urine Negative (Negative); Barbiturate Screen Urine Negative (Negative); Benzodiazepines Screen Urine Negative (Negative); Cannabinoid Screen Urine Positive (Negative); Cocaine Screen Urine Negative (Negative); Methadone Screen Urine Negative (Negative); Opiate Screen Urine Negative (Negative); Phencyclidine Screen Urine Negative (Negative)
[2024-09-15 00:07] LABS: Add Urine Microscopic? YES; Bacteria Urine 3+ /hpf; Color Urine Amber (Yellow); Squamous Epithelial Cell Urine Moderate /hpf (Few); WBC Urine 16-20 /hpf (0-3)
[2024-09-15 00:08] LABS: Pregnancy On Board Control Positive; Urine Pregnancy Test Negative
[2024-09-15 00:08] LABS: Mucus Urine Moderate /lpf
[2024-09-15 00:21] VITALS: BP 112/62; PULSE 76; RESP 18; TEMP 36.6; O2SAT 97
--- NOTE | 2024-09-15 00:52 | PC.NURSE ---
patient resting comfortably, chest rise and fall as appropriate, no distress noted at this time. Patient not displaying any unsafe or bizarre behaviors at this time.
--- NOTE | 2024-09-15 02:28 | PC.NURSE ---
patient resting comfortably, chest rise and fall as appropriate, no distress noted at this time. Patient not displaying any unsafe or bizarre behaviors at this time.
--- NOTE | 2024-09-15 03:00 | PC.NURSE ---
patient resting comfortably, chest rise and fall as appropriate, no distress noted at this time. Patient not displaying any unsafe or bizarre behaviors at this time.
--- NOTE | 2024-09-15 04:01 | PC.NURSE ---
patient resting comfortably, chest rise and fall as appropriate, no distress noted at this time. Patient not displaying any unsafe or bizarre behaviors at this time.
[2024-09-15 04:14] VITALS: BP 113/61; PULSE 88; RESP 18; TEMP 36.9; O2SAT 97
--- NOTE | 2024-09-15 04:20 | PC.NURSE ---
Patient updated on transfer information. Patient agreeable to transfer at this time and has stated its great that she will get the help and care that she needs.
[2024-09-15] MEDS: CEPHALEXIN 500 MG CAPSULE PO (04:22)
--- NOTE | 2024-09-15 05:20 | PC.NURSE ---
Patient stated before she was transferred that she DOES NOT want anyone in her family to know where she was transferred to, not even her father. Patient stated they can figure it out on their own or I will call them, but I dont want them to know where I'm going. Patient still presenting A/O x 4, calm and cooperative.
--- NOTE | 2024-09-17 13:25 | PC.NURSE ---
PRELIMINARY URINE RESULTS: GREATER THAN 100,000 CFU/ML OF GRAM NEGATIVE BACILLI ISOLATED. TO AWAIT C&S PER DR RYAN
--- NOTE | 2024-09-18 14:11 | PC.NURSE ---
FINAL URINE CULTURE RESULTS: ISOLATE 1: GREATER THAN 100,000 CFU/ML OF ESCHERICHIA COLI, NO CHANGE IN [place] NEEDED PER DR MANTILLA
== END 2024-09-15 05:21 ==
PROVIDERS: Emergency Provider Emergency Medicine
DX: F30.2 Manic episode, severe with psychotic symptoms (principal); N39.0 Urinary tract infection, site not specified; Z11.52 Encounter for screening for COVID-19
CPT/HCPCS: 36415; 80053; 80143; 80179; 80307; 81001; 81025; 82077; 84443; 85025; 87086; 87186; 87637; 93005; 99285; A9270